=== PATIENT | male | born 1965 | race African-American/Black ===

== ENCOUNTER 2017-10-04 19:14 | Emergency (ER) | payer OTHER ==
[~2017-10-04] VITALS: Ht 170.2 cm; Wt 93.1 kg
[~2017-10-04 19:14] MED LIST: FLEXERIL10 MG PO; INDOCIN50 MG PO; LIDOCAINE700 MG TD; MOTRIN600 MG PO; MOTRIN800 MG PO; NAPROSYN500 MG PO; NORCO 5/3251 TABLET PO; PERCOCET 5/31 TABLET PO; TYLENOL REGULA325 MG PO; ULTRAM50 MG PO; VICODIN 5-3001 EACH PO
[2017-10-04 19:25] VITALS: BP 151/103
[2017-10-04] MEDS ORDERED: [UNRECOGNIZED DRUG - SUPPLY] MC ×2 (20:54→22:22)
[2017-10-04] MEDS ORDERED: PERCOCET 5/31 TABLET PO ×2 (22:24→22:26)
== END 2017-10-04 22:45 | disposition home or self-care (01) ==
LOC: EME 19:14
DX: S16.1XXA Strain of muscle, fascia and tendon at neck level, initial encounter (principal); S29.012A Strain of muscle and tendon of back wall of thorax, initial encounter; S39.012A Strain of muscle, fascia and tendon of lower back, initial encounter; S46.912A Strain of unspecified muscle, fascia and tendon at shoulder and upper arm level, left arm, initial encounter; M51.36 Other intervertebral disc degeneration, lumbar region; V49.40XA Driver injured in collision with unspecified motor vehicles in traffic accident, initial encounter; Y92.410 Unspecified street and highway as the place of occurrence of the external cause
CPT/HCPCS: 72125; 72128; 72131; 73030; 99281; 99283